=== PATIENT | male | born 1995 | race African-American/Black ===

== ENCOUNTER 2017-06-27 04:53 | Emergency (ER) | payer OTHER, MEDICAID | END 2017-06-27 07:10 | disposition home or self-care (01) | LOC: FTE 04:53 | DX: F41.9 Anxiety disorder, unspecified (principal) | CPT/HCPCS: 99282; Z7502 ==

== ENCOUNTER 2017-11-22 06:41 | Emergency (ER) | payer OTHER | END 2017-11-22 08:23 | disposition home or self-care (01) | LOC: FTE 06:41 | DX: M62.838 Other muscle spasm (principal) | CPT/HCPCS: 99283; Z7502 ==

== ENCOUNTER 2018-10-05 00:28 | Emergency (ER) | payer SELFPAY, OTHER | END 2018-10-05 01:31 | disposition left against medical advice (07) | LOC: FTE 00:28 | DX: Z53.21 Procedure and treatment not carried out due to patient leaving prior to being seen by health care provider (principal) ==

== ENCOUNTER 2018-12-09 02:04 | Emergency (ER) | payer SELFPAY, OTHER | END 2018-12-09 04:16 | disposition left against medical advice (07) | LOC: FTE 02:04 | DX: Z53.21 Procedure and treatment not carried out due to patient leaving prior to being seen by health care provider (principal) ==